=== PATIENT | female | born 1960 | race Two or more races ===

== ENCOUNTER 2025-06-03 21:36 | Emergency (ER) | payer MEDICAID, OTHER ==
[~2025-06-03] VITALS: Ht 170.2 cm; Wt 77.1 kg
[2025-06-03 22:35] LABS: PLATELET COUNT (AUTO) 140 K/uL (150-450); RED BLOOD CELL COUNT(AUTO) 4.53 MIL/uL (4.0-5.2); RED CELL DISTRIBUTION WIDTH 13.4 % (11.5-15.0); WHITE BLOOD COUNT (AUTO) 6.1 K/uL (4.3-11.0)
[2025-06-03 22:43] LABS: CALCIUM, SERUM 8.9 mg/dL (8.5-10.1); CREATININE 0.7 mg/dL (0.6-1.3); SODIUM SERUM 137.0 mmol/L (136-145); UREA NITROGEN, BLOOD 7.0 mg/dL (7-18)
[2025-06-03 22:51] LABS: LACTIC ACID 0.5 mmol/L (0.4-2.0)
[2025-06-03 22:55] LABS: ASPARTATE AMINOTRANSFERASE 24.0 U/L (15-37); NT-PRO BNP 110.0 pg/mL (0-125); TOTAL PROTEIN, SERUM 8.2 g/dL (6.4-8.2)
[2025-06-03] MEDS ORDERED: ALBU8.5H8 INH (23:42)
[2025-06-03] MEDS ORDERED: BENZ-13 PO (23:42)
[2025-06-03] MEDS ORDERED: AZIT250T PO (23:42)
[2025-06-03] MEDS ORDERED: AZITHROMYCIN 250 MG TABLET ONE (23:47)
[2025-06-03] MEDS: AZITHROMYCIN 250 MG TABLET PO ONE (23:51)
[2025-06-03 23:52] VITALS: BP 116/69; TEMP 98.9; O2SAT 96
== END 2025-06-03 23:52 | disposition home or self-care (01) ==
LOC: ER 21:42
DX: J40 Bronchitis, not specified as acute or chronic (principal); R07.9 Chest pain, unspecified; Z20.822 Contact with and (suspected) exposure to COVID-19
CPT/HCPCS: 36415; 71045-TC; 80053-TC; 83605-TC; 83880; 84484-TC; 85025-TC; 87040-TC